=== PATIENT | male | born 1960 | race Caucasian/White ===

== ENCOUNTER → 2017-03-30 | Outpatient (CLI) | payer MEDICAID | LOC: GIMAGING 16:20 | PROVIDERS: ATTEND Registered Nurse | DX: M54.5 Low back pain (principal) | CPT/HCPCS: 72100-PO ==

== ENCOUNTER 2017-04-08 12:48 | Emergency (ER) | payer MEDICAID ==
[2017-04-08 13:12] VITALS: RESP 16; TEMP 98.2
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
[2017-04-08 13:55] LABS: PLATELET COUNT 352 10^3/uL (150-400)
[2017-04-08 14:04] LABS: INR 1.55 (0.83-1.16); PROTIME(PATIENT) 18.7 SEC (12.0-15.0)
[2017-04-08] MEDS ORDERED: IOPAMIDOL (ISOVUE-300) 100 ML BTL ONE (14:28)
[2017-04-08] MEDS ORDERED: LIDOCAINE 4%/MENTHOL 1% PATCH TD ONE (15:48)
[2017-04-08 16:36] VITALS: BP 149/98; PULSE 56; O2SAT 94
[2017-04-08] MEDS ORDERED: PATCH REMOVAL 1 EA PATCH TD SCH (21:00)
== END 2017-04-08 16:35 | disposition home or self-care (01) ==
DX: S30.1XXA Contusion of abdominal wall, initial encounter (principal); Z79.01 Long term (current) use of anticoagulants; V18.2XXA Unspecified pedal cyclist injured in noncollision transport accident in nontraffic accident, initial encounter
CPT/HCPCS: 82947-QW; Q9967

== ENCOUNTER 2018-08-05 14:04 | Emergency (ER) | payer MEDICAID | END 2018-08-05 15:26 | disposition home or self-care (01) ==